=== PATIENT | female | born 1985 | race Caucasian/White ===

== ENCOUNTER → 2021-11-08 | Outpatient (REF) | payer OTHER | LOC: M SFHCDERM 16:42 | PROVIDERS: ATTEND Dermatology | DX: D22.5 Melanocytic nevi of trunk (principal) ==

== ENCOUNTER → 2022-01-03 | Outpatient (REF) | payer OTHER | LOC: M SFHCDERM 14:16 | PROVIDERS: ATTEND Dermatology | DX: D22.5 Melanocytic nevi of trunk (principal) ==